=== PATIENT | male | born 1975 | race Caucasian/White ===

== ENCOUNTER 2021-01-28 16:10 | Emergency (ER) | payer BC, OTHER ==
[2021-01-28] MEDS ORDERED: Sodium Chloride 0.9% 10 ML Syringe FLUSH PRN (16:22)
[2021-01-28] MEDS ORDERED: Acetaminophen 500 MG Tab PO ONE (16:52)
[2021-01-28 17:09] LABS: CORONAVIRUS COVID-19 NAA POSITIVE (NEGATIVE); RESPIRATORY SYNCYTIAL VIR NAA NEGATIVE (NEGATIVE)
--- NOTE | 2021-01-28 17:15 | CR ---
[id number] RAD/RAD Chest PA or AP 1V EXAM: RAD Chest PA or AP 1V INDICATION: COUGH,CHEST CONGESTION. COMPARISON: None. DISCUSSION/IMPRESSION: Cardiomediastinal silhouette is normal in size and contour. Patchy areas of groundglass parenchymal opacification in both lungs most prominent in the mid and lower lungs left greater than right. Distribution and appearance of findings is most consistent with pneumonia, including COVID pneumonia. No pleural effusion or pneumothorax Boom Lacey MD 01/28/21 2824 Thank you for allowing us to participate in the care of your patient.
[2021-01-28] MEDS ORDERED: Famotidine 20 MG/2 ML SDV IVPUSH PRN (17:17)
[2021-01-28] MEDS ORDERED: diphenhydrAMINE 50 MG/ML SDV IVPUSH PRN (17:17)
[2021-01-28] MEDS ORDERED: EPINEPHrine 1 MG/1 ML Amp IM PRN (17:17)
[2021-01-28] MEDS ORDERED: methylPREDNISolone Sodium Succinate 125 MG/2 ML SDV IVPUSH PRN (17:17)
[2021-01-28 17:20] LABS: CHLORIDE,CL 104 mmol/L (98-107); SODIUM,NA 141 mmol/L (136-145)
[2021-01-28 17:25] LABS: ANION GAP 15.4 mmol/L (5-15)
[2021-01-28] MEDS ORDERED: Sodium Chloride 0.9% 10 ML Syringe FLUSH SCH (17:30)
[2021-01-28] MEDS ORDERED: Iopamidol 755 Mg/ML 100 ML Bottle IVPUSH ONE (17:35)
--- NOTE | 2021-01-28 18:07 | CT ---
[id number] CT/CTA Chest EXAM: CTA Chest CLINICAL DATA: + D DIMER,+ COVID. COMPARISON STUDY: Radiograph from today. FINDINGS: Lungs: Patchy areas of groundglass parenchymal opacification throughout both lungs. Distribution and appearance is consistent with COVID pneumonia. No pleural effusion or pneumothorax. Mediastinum: Reactive appearing mediastinal and hilar lymph nodes. Heart and great vessels: Heart is normal in size. No pericardial effusion. Thoracic aorta is normal in caliber. Pulmonary arteries are normal in caliber. Bones: No acute fracture or compression deformity. Spondylosis. Upper abdomen: Diffusely decreased hepatic density suggests underlying steatosis. Correlate with LFTs. Otherwise unremarkable. IMPRESSION: Negative for pulmonary embolus. Changes of COVID pneumonia in the lungs. Boom Lacey MD 01/28/21 2047 Thank you for allowing us to participate in the care of your patient.
--- NOTE | 2021-01-28 19:39 | EDM.PDOC ---
ED HPI GENERAL MEDICAL PROBLEM - General Chief Complaint: Fever Stated Complaint: SHORTNESS OF BREATH Time Seen by Provider: 01/28/21 16:35 Source of Information: Reports: Patient History Limitations: Reports: No Limitations - History of Present Illness INITIAL COMMENTS - FREE TEXT/NARRATIVE: Pt. presents to ER with complaints of fever, chills, weakness, shortness of breath, lightheadedness, cough, and fatigue. Pt. states that he has been ill for approx. 1 week. He states that he had a negative covid test 2 days ago. He was seen in clinic yesterday, diagnosed with pneumonia and started on zpack. Pt. states that he has not had any ill contacts. No substernal chest pain. No nausea, vomiting, or diarrhea. Onset: Today Onset Date: 01/28/21 Location: Reports: Chest, Generalized - Related Data Allergies Allergy/AdvReac Type Severity Reaction Status Date / Time erythromycin base Allergy Hives Verified 01/28/21 16:55 Penicillins Allergy Hives Verified 01/28/21 16:55 Home Meds: Home Meds . [No Known Home Meds] 01/28/21 [History] Past Medical History - Past Health History Medical/Surgical History: Denies Medical/Surgical History Social & Family History - Tobacco Use Tobacco Use Status *Q: Never Tobacco User ED ROS GENERAL - Review of Systems Review Of Systems: See Below Constitutional: Reports: Fever, Chills, Malaise, Weakness, Fatigue Respiratory: Reports: Shortness of Breath, Cough Cardiovascular: Reports: No Symptoms Endocrine: Reports: No Symptoms GI/Abdominal: Reports: No Symptoms : Reports: No Symptoms Musculoskeletal: Reports: No Symptoms Skin: Reports: No Symptoms Neurological: Reports: No Symptoms Psychiatric: Reports: No Symptoms Hematologic/Lymphatic: Reports: No Symptoms Immunologic: Reports: No Symptoms ED EXAM, GENERAL - Physical Exam Exam: See Below Exam Limited By: No Limitations General Appearance: Alert, WD/WN, No Apparent Distress Nose: Normal Inspection, Normal Mucosa, No Blood Throat/Mouth: Normal Inspection, Normal Lips, Normal Teeth, Normal Gums, Normal Oropharynx, Normal Voice, No Airway Compromise Head: Atraumatic, Normocephalic Neck: Normal Inspection, Supple, Non-Tender, Full Range of Motion Respiratory/Chest: Decreased Breath Sounds, Crackles, Wheezing Cardiovascular: Normal Peripheral Pulses, Regular Rate, Rhythm, No Edema, No Gallop, No JVD, No Murmur, No Rub Peripheral Pulses: 4+: Radial (L) GI/Abdominal: Normal Bowel Sounds, Soft, Non-Tender, No Organomegaly, No Distention, No Abnormal Bruit, No Mass, Pelvis Stable (Male) Exam: Deferred Rectal (Males) Exam: Deferred Back Exam: Normal Inspection, Full Range of Motion Extremities: Normal Inspection, Normal Range of Motion, Non-Tender, No Pedal Edema, Normal Capillary Refill Neurological: Alert, Oriented, CN II-XII Intact, Normal Cognition, Normal Reflexes Psychiatric: Normal Affect, Normal Mood Skin Exam: Warm, Dry, Intact, Normal Color Lymphatic: No Adenopathy #1 Interpretation Rhythm: NSR Brogue: Normal P-Wave: Present QRS: Normal ST-T: Normal QT: Normal Course - Vital Signs Last Recorded V/S: Last Vital Signs Temp 39.1 C H 01/28/21 18:14 Pulse 103 H 01/28/21 18:45 Resp 18 01/28/21 18:45 BP 118/78 01/28/21 18:45 Pulse Ox 93 L 01/28/21 18:45 - Orders/Labs/Meds Orders: Active Orders 24 hr Category Date Time Status CULTURE BLOOD [BC] Stat Lab 01/28/21 16:39 Received CULTURE BLOOD [BC] Stat Lab 01/28/21 16:46 Received Blood Culture x2 Reflex Set [OM.PC] Stat Oth 01/28/21 16:23 Ordered Peripheral IV Insertion Adult [OM.PC] Routine Oth 01/28/21 16:23 Ordered Labs: Laboratory Tests 01/28/21 01/28/21 01/28/21 Range/Units 16:20 16:39 16:39 WBC 5.2 (4.0-10.0) x10^3/uL RBC 4.96 (4.5-6.0) x10^6/uL Hgb 15.4 (14.0-18.0) g/dL Hct 44.5 (40.0-52.0) % MCV 89.7 (78.0-93.0) fL MCH 31.0 (26.0-32.0) pg MCHC 34.6 (32.0-36.0) g/dL RDW Coeff of Shaji 12.8 (10.0-15.0) % Plt Count 209 (130-400) x10^3/uL Immature Gran % (Auto) 0.20 (0.00-0.43) % Neut % (Auto) 77.6 (50.0-80.0) % Lymph % (Auto) 16.6 L (25.0-50.0) % [place] % (Auto) 5.4 (2.0-11.0) % Eos % (Auto) 0.0 (0.0-4.0) % Baso % (Auto) 0.2 (0.2-1.2) % Neut # (Auto) 4.0 (1.8-7.7) x10^3/uL Lymph # (Auto) 0.9 L (1.0-4.8) x10^3/uL [place] # (Auto) 0.3 (0.0-0.8) x10^3/uL Eos # (Auto) 0.0 (0.0-0.5) x10^3/uL Baso # (Auto) 0.0 (0.0-0.2) x10^3/uL Immature Gran # (Auto) 0.01 (0.00-0.07) x10^3/uL PT 9.9 (9.9-12.5) SEC INR 0.9 L (2.0-3.5) D-Dimer, Quantitative 0.80 H (<=0.58) mg/LFEU Sodium (136-145) mmol/L Potassium (3.5-5.1) mmol/L Chloride (98-107) mmol/L Carbon Dioxide (21-32) mmol/L Anion Gap (5-15) mmol/L BUN (7-18) mg/dL Creatinine (0.70-1.30) mg/dL Est Cr Clr Drug Dosing Estimated GFR (MDRD) Glucose (70-99) mg/dL Lactic Acid (0.4-2.0) mmol/L Calcium (8.5-10.1) mg/dL Corrected Calcium (8.5-10.1) mg/dL Phosphorus (2.6-4.7) mg/dL Magnesium (1.8-2.4) mg/dL Total Bilirubin (0.2-1.0) mg/dL AST (15-37) U/L ALT (16-63) U/L Alkaline Phosphatase (46-116) U/L Lactate Dehydrogenase (85-227) U/L Troponin I High Sens (<=76) ng/L C-Reactive Protein (<=0.9) mg/dL NT-Pro-B Natriuret Pep (<=125) pg/mL Total Protein (6.4-8.2) g/dL Albumin (3.4-5.0) g/dL Globulin Albumin/Globulin Ratio Procalcitonin (0.1-0.50) ng/mL Influenza Type A RNA Negative (NEGATIVE) RSV RNA (INAAT) Negative (NEGATIVE) Influenza Type B RNA Negative (NEGATIVE) SARS-CoV-2 RNA (ADEEL) Positive H (NEGATIVE) 01/28/21 01/28/21 01/28/21 Range/Units 16:39 16:39 16:39 WBC (4.0-10.0) x10^3/uL RBC (4.5-6.0) x10^6/uL Hgb (14.0-18.0) g/dL Hct (40.0-52.0) % MCV (78.0-93.0) fL MCH (26.0-32.0) pg MCHC (32.0-36.0) g/dL RDW Coeff of Shaji (10.0-15.0) % Plt Count (130-400) x10^3/uL Immature Gran % (Auto) (0.00-0.43) % Neut % (Auto) (50.0-80.0) % Lymph % (Auto) (25.0-50.0) % [place] % (Auto) (2.0-11.0) % Eos % (Auto) (0.0-4.0) % Baso % (Auto) (0.2-1.2) % Neut # (Auto) (1.8-7.7) x10^3/uL Lymph # (Auto) (1.0-4.8) x10^3/uL [place] # (Auto) (0.0-0.8) x10^3/uL Eos # (Auto) (0.0-0.5) x10^3/uL Baso # (Auto) (0.0-0.2) x10^3/uL Immature Gran # (Auto) (0.00-0.07) x10^3/uL PT (9.9-12.5) SEC INR (2.0-3.5) D-Dimer, Quantitative (<=0.58) mg/LFEU Sodium 141 (136-145) mmol/L Potassium 3.4 L (3.5-5.1) mmol/L Chloride 104 (98-107) mmol/L Carbon Dioxide 25 (21-32) mmol/L Anion Gap 15.4 H (5-15) mmol/L BUN 16 (7-18) mg/dL Creatinine 1.2 (0.70-1.30) mg/dL Est Cr Clr Drug Dosing TNP Estimated GFR (MDRD) > 60 Glucose 107 H (70-99) mg/dL Lactic Acid 1.3 (0.4-2.0) mmol/L Calcium 8.4 L (8.5-10.1) mg/dL Corrected Calcium 9.0 (8.5-10.1) mg/dL Phosphorus 2.1 L (2.6-4.7) mg/dL Magnesium 2.0 (1.8-2.4) mg/dL Total Bilirubin 0.3 (0.2-1.0) mg/dL AST 34 (15-37) U/L ALT 31 (16-63) U/L Alkaline Phosphatase 118 H (46-116) U/L Lactate Dehydrogenase (85-227) U/L Troponin I High Sens 7 (<=76) ng/L C-Reactive Protein 6.7 H (<=0.9) mg/dL NT-Pro-B Natriuret Pep 71 (<=125) pg/mL Total Protein 6.9 (6.4-8.2) g/dL Albumin 3.2 L (3.4-5.0) g/dL Globulin 3.7 Albumin/Globulin Ratio 0.86 Procalcitonin 0.06 L (0.1-0.50) ng/mL Influenza Type A RNA (NEGATIVE) RSV RNA (INAAT) (NEGATIVE) Influenza Type B RNA (NEGATIVE) SARS-CoV-2 RNA (ADEEL) (NEGATIVE) 01/28/21 Range/Units 16:39 WBC (4.0-10.0) x10^3/uL RBC (4.5-6.0) x10^6/uL Hgb (14.0-18.0) g/dL Hct (40.0-52.0) % MCV (78.0-93.0) fL MCH (26.0-32.0) pg MCHC (32.0-36.0) g/dL RDW Coeff of Shaji (10.0-15.0) % Plt Count (130-400) x10^3/uL Immature Gran % (Auto) (0.00-0.43) % Neut % (Auto) (50.0-80.0) % Lymph % (Auto) (25.0-50.0) % [place] % (Auto) (2.0-11.0) % Eos % (Auto) (0.0-4.0) % Baso % (Auto) (0.2-1.2) % Neut # (Auto) (1.8-7.7) x10^3/uL Lymph # (Auto) (1.0-4.8) x10^3/uL [place] # (Auto) (0.0-0.8) x10^3/uL Eos # (Auto) (0.0-0.5) x10^3/uL Baso # (Auto) (0.0-0.2) x10^3/uL Immature Gran # (Auto) (0.00-0.07) x10^3/uL PT (9.9-12.5) SEC INR (2.0-3.5) D-Dimer, Quantitative (<=0.58) mg/LFEU Sodium (136-145) mmol/L Potassium (3.5-5.1) mmol/L Chloride (98-107) mmol/L Carbon Dioxide (21-32) mmol/L Anion Gap (5-15) mmol/L BUN (7-18) mg/dL Creatinine (0.70-1.30) mg/dL Est Cr Clr Drug Dosing Estimated GFR (MDRD) Glucose (70-99) mg/dL Lactic Acid (0.4-2.0) mmol/L Calcium (8.5-10.1) mg/dL Corrected Calcium (8.5-10.1) mg/dL Phosphorus (2.6-4.7) mg/dL Magnesium (1.8-2.4) mg/dL Total Bilirubin (0.2-1.0) mg/dL AST (15-37) U/L ALT (16-63) U/L Alkaline Phosphatase (46-116) U/L Lactate Dehydrogenase 322 H (85-227) U/L Troponin I High Sens (<=76) ng/L C-Reactive Protein (<=0.9) mg/dL NT-Pro-B Natriuret Pep (<=125) pg/mL Total Protein (6.4-8.2) g/dL Albumin (3.4-5.0) g/dL Globulin Albumin/Globulin Ratio Procalcitonin (0.1-0.50) ng/mL Influenza Type A RNA (NEGATIVE) RSV RNA (INAAT) (NEGATIVE) Influenza Type B RNA (NEGATIVE) SARS-CoV-2 RNA (ADEEL) (NEGATIVE) Meds: Medications Discontinued Medications Generic Name Dose Route Start Last Admin Trade Name Freq PRN Reason Stop Dose Admin Acetaminophen 1,000 mg 01/28/21 16:52 01/28/21 17:02 Acetaminophen 500 Mg Tab PO 01/28/21 16:53 1,000 mg ONETIME ONE Administration Diphenhydramine HCl 50 mg 01/28/21 17:17 Diphenhydramine 50 Mg/Ml Sdv IVPUSH ASDIRECTED PRN hypersensitivity reaction Epinephrine HCl 0.3 mg 01/28/21 17:17 Epinephrine 1 Mg/1 Ml Amp IM ASDIRECTED PRN hypersensitivity reaction Famotidine 20 mg 01/28/21 17:17 Famotidine 20 Mg/2 Ml Sdv IVPUSH ASDIRECTED PRN hypersensitivity reaction CASIRIVIMAB/IMDEVIMAB 10 ml/ 110 mls @ 220 mls/hr 01/28/21 17:17 01/28/21 17:37 Sodium Chloride IV 01/28/21 17:46 220 mls/hr ONETIME ONE Administration Iopamidol 75 ml 01/28/21 17:35 01/28/21 17:45 Iopamidol 755 Mg/Ml 100 Ml Bottle IVPUSH 01/28/21 17:36 Not Given ONETIME ONE Methylprednisolone Sodium Succinate 125 mg 01/28/21 17:17 Methylprednisolone Sodium Succinate 125 Mg/2 Ml Sdv IVPUSH ASDIRECTED PRN hypersensitivity reaction Sodium Chloride 10 ml 01/28/21 16:22 Sodium Chloride 0.9% 10 Ml Syringe FLUSH ASDIRECTED PRN Keep Vein Open Sodium Chloride 30 ml 01/28/21 17:30 Sodium Chloride 0.9% 10 Ml Syringe FLUSH ASDIRECTED [place] - Radiology Interpretation Free Text/Narrative:: Diffuse bilateral infiltrates, no PE noted on CTA. - Re-Assessments/Exams Free Text/Narrative Re-Assessment/Exam: Pt. was given regeneron infusion Departure - Departure Time of Disposition: 18:00 Disposition: Home, Self-Care 01 Clinical Impression: COVID, Viral pneumonia - Discharge Information Instructions: Symptoms of COVID-19 - [facility] (04/14/2020), COVID-19: Quarantine vs. Isolation - [facility] (02/07/2020) Referrals: Curtis Hendrickson [Primary Care Provider] - Forms: ED Department Discharge Additional Instructions: Home to rest. [place] Dept. of health will be in contact regarding plan for isolation for you and your family. Return to ER if you have increased shortness of breath, chest pain, or pass out. Drink plenty of fluids. Tylenol and ibuprofen for fever/discomfort. Sepsis Event Note (ED) - Focused Exam Vital Signs: Vital Signs Temp Temp Pulse Resp BP Pulse Ox 01/28/21 18:45 103 H 18 118/78 93 L 01/28/21 18:26 104 H 110/69 92 L 01/28/21 18:14 39.1 C H 92 18 109/71 92 L 01/28/21 17:59 97 113/69 92 L 01/28/21 17:47 101 H 18 108/72 92 L 01/28/21 17:38 102 H 16 105/72 93 L 01/28/21 17:32 39.1 C H 01/28/21 17:02 39.9 C H 01/28/21 16:35 39.9 C H 107 H 20 135/84 92 L - Problem List Review Problem List Initiated/Reviewed/Updated: Yes - My Orders Last 24 Hours: My Active Orders 01/28/21 16:23 Blood Culture x2 Reflex Set [OM.PC] Stat Peripheral IV Insertion Adult [OM.PC] Routine 01/28/21 16:39 CULTURE BLOOD [BC] Stat 01/28/21 16:46 CULTURE BLOOD [BC] Stat - Assessment/Plan Last 24 Hours: My Active Orders 01/28/21 16:23 Blood Culture x2 Reflex Set [OM.PC] Stat Peripheral IV Insertion Adult [OM.PC] Routine 01/28/21 16:39 CULTURE BLOOD [BC] Stat 01/28/21 16:46 CULTURE BLOOD [BC] Stat Plan: Home to rest. [place] Dept. of health will be in contact regarding plan for isolation for you and your family. Return to ER if you have increased shortness of breath, chest pain, or pass out. Drink plenty of fluids. Tylenol and ibuprofen for fever/discomfort.
== END 2021-01-28 19:00 | disposition home or self-care (01) ==
LOC: VM.ED 16:30
DX: U07.1 COVID-19 (principal); J12.82 Pneumonia due to coronavirus disease 2019; Z88.1 Allergy status to other antibiotic agents; Z88.0 Allergy status to penicillin
CPT/HCPCS: 0241U; 36415; 71045; 71275; 80053; 83605; 83615; 83735; 83880; 84100; 84145; 84484; 85025; 85379; 85610; 86140; 87040; 93005; 93010; 99284; 99285-25; A9270-GY; M0243; Q0243